=== PATIENT | female | born 1995 | race Caucasian/White ===

== ENCOUNTER 2022-03-11 22:53 | Emergency (ER) | payer OTHER ==
[2022-03-11] MEDS ORDERED: Fluor-I-Strip/Ful-Flo OP ONE (23:04)
[2022-03-11] MEDS ORDERED: Eye-Stream Solution ONE (23:04)
[2022-03-11] MEDS ORDERED: TETRACAINE 0.5% STERI-UNIT SOL OP ONE (23:04)
[2022-03-11 23:15] VITALS: BP 136/87
[2022-03-11] MEDS ORDERED: TETRACAINE 0.5% STERI-UNIT SOL OP STA (23:29)
--- NOTE | 2022-03-11 23:29 | ERPHSYRPT ---
- History of Present Illness Time Seen by Provider: 03/11/22 23:10 Source: patient Exam Limitations: no limitations Patient Subjective Stated Complaint: Pt states "A vacuum cord flung out and hit me in my eye last night." Triage Nursing Assessment: Pt presents to ED c/o L eye pain after patient was vacuuming last night around 0200 and went to pull the vacuum cord out from the wall plug in and it hit her in the L eye. Pt's L eye is red and pt states "My eye and nose has been running since it happened." Physician History: This is a 27 y/o white female who suffered a left eye trauma at 0200 today while vacuuming. cord was pulled and hit the left eye. since that time she has has pain, burning sensation, feeling of a foreign body and headache. pt cannot take acetaminophen. Timing/Duration: today Location: left eye Severity: moderate Apparent Injury: yes Associated Symptoms: pain, burning, itching, sensitivity to light, redness, matting, foreign body sensation Visual Assistive Devices: None Chemical Exposure: No Trauma: Yes Welding Arc/Tanning Bed Exposure: No Allergies/Adverse Reactions: acetaminophen [From Tylenol] Allergy (Mild, Verified 03/11/22 23:02) Penicillins Allergy (Mild, Verified 03/11/22 23:02) Hx Tetanus, Diphtheria Vaccination/Date Given: No Immunizations Up to Date: Yes Travel Risk - International Travel Have you traveled outside of the country in past 3 weeks: No - Coronavirus Screening Are you exhibiting any of the following symptoms?: No Close contact with a COVID-19 positive Pt in past 14-21 Days: No - Vaccine Status Have you recieved a Covid-19 vaccination: No - Review of Systems Constitutional: No Symptoms Eyes: Eye Pain, Eye Redness, Itchy, Foreign Body Sensation Ears, Nose, & Throat: No Symptoms Respiratory: No Symptoms Cardiac: No Symptoms Abdominal/Gastrointestinal: No Symptoms Genitourinary Symptoms: No Symptoms Musculoskeletal: No Symptoms Skin: No Symptoms Neurological: No Symptoms Psychological: No Symptoms Endocrine: No Symptoms Hematologic/Lymphatic: No Symptoms Immunological/Allergic: No Symptoms All Other Systems: Reviewed and Negative - Past Medical History Pertinent Past Medical History: No Neurological History: No Pertinent History ENT History: No Pertinent History Cardiac History: No Pertinent History Respiratory History: No Pertinent History Endocrine Medical History: No Pertinent History Musculoskeletal History: No Pertinent History GI Medical History: No Pertinent History History: No Pertinent History Psycho-Social History: No Pertinent History Female Reproductive Disorders: No Pertinent History Other Medical History: "I have bad lungs" - Past Surgical History Past Surgical History: No Neuro Surgical History: No Pertinent History Cardiac: No Pertinent History Respiratory: No Pertinent History Gastrointestinal: No Pertinent History Genitourinary: No Pertinent History Musculoskeletal: No Pertinent History Female Surgical History: No Pertinent History - Social History Smoking Status: Current every day smoker How long have you smoked: 1/2 pack Exposure to second hand smoke: No Drug Use: none Patient Lives Alone: No - Female History Hx Last Menstrual Period: 03/07/2022 Hx Now: No - Nursing Vital Signs Nursing Vital Signs: Initial Vital Signs Temperature 98.2 F 03/11/22 23:02 Pulse Rate 109 H 03/11/22 23:02 Respiratory Rate 16 03/11/22 23:02 Blood Pressure 136/87 03/11/22 23:02 O2 Sat by Pulse Oximetry 98 03/11/22 23:02 Pain Scale Pain Intensity 7 - Physical Exam General Appearance: mild distress, alert, anxiety Vision Acuity Degree Evaluation Phase: Corrected Eye Exam: left eye: conjunctival inflammation, corneal abrasion, bilateral eye: PERRL, EOMI Ears, Nose, Throat Exam: normal ENT inspection, moist mucous membranes Neck Exam: normal inspection, non-tender, supple, full range of motion Respiratory Exam: normal breath sounds, lungs clear, airway intact, No chest tenderness, No respiratory distress Cardiovascular Exam: normal heart sounds, normal peripheral pulses, tachycardia Gastrointestinal Exam: No tenderness Extremity Exam: normal inspection, normal range of motion, pelvis stable Neurologic: alert, oriented x 3, cooperative, clerical specialist II-XII nml as tested, normal mood/affect, nml cerebellar function, nml station & gait, sensation nml Skin Exam: normal color, warm, dry Lymphatic: No adenopathy SpO2 Interpretation: normal SpO2: 98 O2 Delivery: Room Air - Course Nursing assessment & vital signs reviewed: Yes Ordered Tests: Active Orders 24 hr Category Date Time Status Eye Patch Application STAT Care 03/11/22 23:29 Active Medication Summary Generic Name Dose Route Start Last Admin Trade Name Freq PRN Reason Stop Dose Admin Prednisone 20 mg 03/12/22 23:31 03/11/22 23:39 Prednisone 20 Mg Tablet PO 03/12/22 23:32 20 mg STAT ONE Administration Discontinued Medications Generic Name Dose Route Start Last Admin Trade Name Linda PRN Reason Stop Dose Admin Erythromycin 3.5 gm 03/11/22 23:29 03/11/22 23:40 Erythromycin Base 3.5 Gm Tube Eye Ointment OP 03/11/22 23:30 3.5 gm STAT ONE Administration Erythromycin Confirm 03/11/22 23:36 Erythromycin Base 1 Gm Tube Eye Ointment Administered 03/11/22 23:37 Dose 1 gm .ROUTE .STK-MED ONE Eye Irrigation Solution Confirm 03/11/22 23:04 Sodium/Potassium/Charanjit/Magnesium 30 Ml Eye Wash Administered 03/11/22 23:05 Dose 30 ml .ROUTE .STK-MED ONE Fluorescein Sodium Confirm 03/11/22 23:04 Fluorescein Sodium 1 Mg/Strip Strip Administered 03/11/22 23:05 Dose 1 mg OP .STK-MED ONE Hydromorphone HCl 1 mg 03/11/22 23:30 03/11/22 23:39 Hydromorphone 1 Mg/1ml Inj 1 Mg/Ml Syringe IM 03/11/22 23:31 1 mg STAT ONE Administration Hydromorphone HCl Confirm 03/11/22 23:37 Hydromorphone 1 Mg/1ml Inj 1 Mg/Ml Syringe Administered 03/11/22 23:38 Dose 1 mg .ROUTE .STK-MED ONE Ondansetron HCl 4 mg 03/11/22 23:31 03/11/22 23:39 Zofran 4 Mg/Udtablet Orally Disintegrating PO 03/11/22 23:32 4 mg STAT ONE Administration Ondansetron HCl Confirm 03/11/22 23:36 Zofran 4 Mg/Udtablet Orally Disintegrating Administered 03/11/22 23:37 Dose 4 mg .ROUTE .STK-MED ONE Prednisone Confirm 03/11/22 23:37 Prednisone 20 Mg Tablet Administered 03/11/22 23:38 Dose 20 mg .ROUTE .STK-MED ONE Tetracaine HCl Confirm 03/11/22 23:04 Tetracaine Hcl/Pf 4 Ml Bottle Administered 03/11/22 23:05 Dose 4 ml OP .STK-MED ONE Tetracaine HCl 4 ml 03/11/22 23:29 03/11/22 23:38 Tetracaine Hcl/Pf 4 Ml Bottle OP 03/11/22 23:30 4 ml STAT STA Administration - Progress Progress: improved Counseled pt/family regarding: diagnosis, need for follow-up - Departure Departure Disposition: Home Clinical Impression: Corneal abrasion, left, Conjunctivitis Condition: Stable Critical Care Time: No Referrals: DOCTOR,NO FAMILY [Primary Care Provider] - Follow up/PCP as directed Additional Instructions: use erythromycin ophthamologic ointment as directed for left eye. call ophthamologist tomorrow, 03/12/22, to make arrangement for follow up appointment Prescriptions: Hydrocodon/Ibupr 7.5mg/200mg [Vicoprofen 7.5mg/200mg Tablet] 1 tab PO Q8H PRN PRN #6 tablet MDD 3 PRN Reason: Moderate To Severe Pain Prednisone 10 mg [Deltasone 10 mg] 10 mg PO TID #12 tablet Erythromycin Base 3.5 gm [Erythromycin 3.5 GM OPHTH.] 3.5 gm OP QID #1
[2022-03-11] MEDS ORDERED: Hydromorphone 1 mg/ml Injection IM ONE (23:30)
[2022-03-11] MEDS ORDERED: ZOFRAN ODT 4 MG PO ONE (23:31)
[2022-03-11] MEDS ORDERED: ZOFRAN ODT 4 MG ONE (23:36)
[2022-03-11] MEDS ORDERED: Erythromycin 1 GM ONE (23:36)
[2022-03-11] MEDS ORDERED: Hydromorphone 1 mg/ml Injection ONE (23:37)
[2022-03-11] MEDS ORDERED: DELTASONE 20 MG ONE (23:37)
[2022-03-11] MEDS: Erythromycin 3.5 GM OPHTH. OP ONE ×2 (23:40→23:54)
[2022-03-11] MEDS ORDERED: Erythromycin 1 GM OP STA (23:50)
[2022-03-11 23:58] VITALS: PULSE 83; O2SAT 97
[2022-03-12] MEDS ORDERED: DELTASONE 20 MG PO ONE (23:31)
== END 2022-03-12 00:02 | disposition home or self-care (01) ==
LOC: ED 22:53
DX: S05.02XA Injury of conjunctiva and corneal abrasion without foreign body, left eye, initial encounter (principal); W20.8XXA Other cause of strike by thrown, projected or falling object, initial encounter; Y93.E3 Activity, vacuuming; H10.9 Unspecified conjunctivitis; H57.12 Ocular pain, left eye; H51.9 Unspecified disorder of binocular movement; H53.142 Visual discomfort, left eye; Z72.0 Tobacco use; Z79.891 Long term (current) use of opiate analgesic; Z79.52 Long term (current) use of systemic steroids
CPT/HCPCS: 96372; 99284; J1170; Q0162; A9270-GY